=== PATIENT | male | born 1950 | race Caucasian/White ===

== ENCOUNTER → 2019-04-26 | Outpatient (CLI) | payer MEDICARE, OTHER ==
[~2019-04-26] MED LIST: ASPIR 8181 MG; BENICAR PO
--- NOTE | 2019-04-26 16:08 | Diagnostic Imaging Report ---
EXAM: Focused Soft Tissue Ultrasound Evaluation of left lower extremity INDICATION: Left lower extremity palpable subcutaneous nodule COMPARISON: None TECHNIQUE: Cornejo scale, color Doppler images of the area of clinical interest in the left lower extremity were obtained. FINDINGS: Sonographic evaluation of the area of clinical interest in the left lower lateral leg demonstrates a heterogeneous subcutaneous lesion measuring 3.9 x 2.0 x 3.3 cm without associated internal vascularity. IMPRESSION: Nonvascular subcutaneous lesion measuring 3.9 x 2.0 x 3.3 cm. Differential considerations include sequela of prior trauma or less likely atypical appearance of a lipoma. Signed by: Nazario Carr MD on 04/26/2019 4:05 PM
== END ==
LOC: US 14:28
PROVIDERS: ATTEND Family Medicine
DX: L98.9 Disorder of the skin and subcutaneous tissue, unspecified (principal); R22.42 Localized swelling, mass and lump, left lower limb
CPT/HCPCS: 76882

== ENCOUNTER → 2019-11-17 | Outpatient (CLI) | payer MEDICARE, OTHER ==
--- NOTE | 2019-11-17 14:49 | Diagnostic Imaging Report ---
EXAM: Renal Ultrasound INDICATION: ^ABNORMAL KIDNEY FUNCTION STUDY COMPARISON: None TECHNIQUE: Transverse and longitudinal images of the kidneys and bladder were obtained. FINDINGS: Right Kidney: Length: 12.5 cm Appearance: Normal echogenicity. Collecting system: No hydronephrosis Stones: None Cyst/Mass: None Left Kidney: Length: 12.1 cm Appearance: Normal echogenicity. Collecting system: No hydronephrosis Stones: None Cyst/Mass: None Bladder: No mass or calculi. Bilateral ureteral jets visualized. Prevoid volume estimate of 217 cc. IMPRESSION: No hydronephrosis or renal calculi. Signed by: Nazario Carr MD on 11/17/2019 2:46 PM
== END ==
LOC: US 13:52
PROVIDERS: ATTEND Family Medicine
DX: R94.4 Abnormal results of kidney function studies (principal)
CPT/HCPCS: 76770

== ENCOUNTER → 2020-04-19 | Day surgery (SDC) | payer MEDICARE, OTHER ==
[2020-04-13 15:28] LABS: BASOPHILS % 0.4 % (0.0-1.0); EOSINOPHILS # (AUTO) 0.1 (0.0-0.4); EOSINOPHILS % 1.5 % (0.0-6.0); HEMATOCRIT 46.7 % (38.2-49.6); HEMOGLOBIN 14.4 g/dL (14.0-18.0); LYMPHOCYTES # (AUTO) 1.5 (1.0-3.2); LYMPHOCYTES % 22.3 % (18.0-39.1); MEAN CORPUSCULAR HEMOGLOBIN 29.8 pg (28-32); MEAN CORPUSCULAR HGB CONC 30.8 g/dL (31-35); MEAN CORPUSCULAR VOLUME 96.7 fL (81-99); MONOCYTES # (AUTO) 0.7 (0.2-0.8); MONOCYTES % 10.1 % (4.4-11.3); NEUTROPHILS # (AUTO) 4.5 (2.1-6.9); NEUTROPHILS % 65.4 % (38.7-80.0); PLATELET COUNT 200 x10e3/uL (140-360); RED BLOOD COUNT 4.83 x10e6/uL (4.3-5.7); RED CELL DISTRIBUTION WIDTH 14.4 % (11.7-14.4)
[~2020-04-19] MED LIST changes: +CALCIUM CARBON500 MG PO; +EPHEDRINE SULFATE INJ 50 MG/ML VIAL ONE; +FISH OIL 1,0001 EAC2 PO; +HYOSCYAMINE 0.125 MG TAB ONE; +LIDOCAINE HCL 2% LOCAL INJ 5 ML SDV VIAL INJ ONE; +PROPOFOL IV EMULSION 10 MG/ML 20 ML VIAL ONE; +VITAMIN E400 UNIT PO; +ZINC SULFATE220 M1 PO
[2020-04-19 14:45] VITALS: BP 110/69
--- NOTE | 2020-04-19 15:41 | Operative Report ---
DATE OF PROCEDURE: 04/19/2020 SURGEON: Margarito Ortiz MD PROCEDURES: EGD with biopsies and colonoscopy with polypectomy note. INDICATIONS FOR EGD: Heartburn, nausea, bloating. INDICATIONS FOR COLONOSCOPY: Surveillance colonoscopy, personal history of colon polyps. MEDICATIONS: The patient was done under MAC, please see anesthesiologist's note. PROCEDURE IN DETAIL: With the patient in left lateral decubitus position, a flexible fiberoptic Olympus gastroscope was introduced into the esophagus under direct visualization without any difficulty. There was some patchy erythema noted in the distal esophagus. The scope was then advanced with ease into the stomach. Mucosa overlying the antrum and the body revealed some patchy erythema and [id number] edema, and biopsies were obtained, sent to stain for H. pylori. Two minute submucosal nodules in the antrum were biopsied. The pylorus was of normal contour and shape, it was intubated with ease and the scope was advanced all the way to the second portion of the duodenum. The scope was then withdrawn slowly, mucosa overlying the proximal second portion and duodenal bulb appeared to be within normal limits. The scope was then withdrawn back into the stomach and retroflexed, mucosa overlying the fundus and the cardia appeared to be within normal limits. The scope was then straightened out, it was subsequently withdrawn. The patient tolerated the procedure well. IMPRESSION: 1. Distal esophagitis, mild. 2. Gastritis, biopsied, biopsies sent to stain for H. pylori. 3. Gastric antrum, minute submucosal nodules, biopsied. PLAN: 1. Follow up histology. 2. Initiate Protonix 40 mg one p.o. q.a.m. a.c. DESCRIPTION OF PROCEDURE: The patient was then turned around after adequate lubrication of the anal canal, a flexible fiberoptic Olympus colonoscope was inserted into the rectum with ease and advanced all the way to the cecum. It was then withdrawn slowly. Mucosa overlying the cecum appeared to be within normal limits. One polyp was removed per the cold biopsy forceps from the ascending colon and additional polyp was removed also per the cold biopsy forceps on the transverse colon. Diverticular disease was noted in the distal descending and the sigmoid colon. The rectum appeared to be within normal limits. The scope was then retroflexed into the distal rectum and small internal hemorrhoids were noted, none of which was actively bleeding. The scope was then straightened out, it was subsequently withdrawn. The patient tolerated procedure well. IMPRESSION: 1. Ascending colon polyp removed per the cold biopsy forceps. 2. Transverse colon polyp removed per the cold biopsy forceps. 3. Diverticulosis. 4. Internal hemorrhoids, none actively bleeding. PLAN: 1. Follow up histology. 2. Initiate high-fiber, low-fat diet. 3. Initiate high-fiber supplement. Margarito Ortiz MD [facility] [place]/MODL /[id number] cc: Willem Flowers DO
== END | disposition home or self-care (01) ==
LOC: OR 10:52
PROVIDERS: ATTEND Internal Medicine Gastroenterology
DX: K29.50 Unspecified chronic gastritis without bleeding (principal); D12.2 Benign neoplasm of ascending colon; D12.3 Benign neoplasm of transverse colon; K31.89 Other diseases of stomach and duodenum; K57.30 Diverticulosis of large intestine without perforation or abscess without bleeding; K20.9 Esophagitis, unspecified; K64.8 Other hemorrhoids; R19.7 Diarrhea, unspecified; I10 Essential (primary) hypertension; I44.0 Atrioventricular block, first degree; Z01.810 Encounter for preprocedural cardiovascular examination; Z01.812 Encounter for preprocedural laboratory examination; Z11.59 Encounter for screening for other viral diseases; Z79.82 Long term (current) use of aspirin; Z68.36 Body mass index [BMI] 36.0-36.9, adult
CPT/HCPCS: 36415; 43239; 45378; 85025; 88305; 88312; 93005; J2001; U0002

== ENCOUNTER → 2025-01-30 | Outpatient (REF) | payer MEDICARE, OTHER ==
[~2025-01-30] MED LIST changes: +ATORVASTATIN CA20 MG PO; +D3 PLUS K2 DOT1 EACH PO; +ELIQUIS5 MG PO; -EPHEDRINE SULFATE INJ 50 MG/ML VIAL ONE; -HYOSCYAMINE 0.125 MG TAB ONE; -LIDOCAINE HCL 2% LOCAL INJ 5 ML SDV VIAL INJ ONE; +LISINOPRIL10 MG PO; -PROPOFOL IV EMULSION 10 MG/ML 20 ML VIAL ONE
== END ==
LOC: US 13:54
PROVIDERS: ATTEND Family Medicine
DX: M25.531 Pain in right wrist (principal)
CPT/HCPCS: 76882

== ENCOUNTER → 2025-02-13 | Outpatient (REF) | payer MEDICARE, OTHER | LOC: MRI 09:05 | PROVIDERS: ATTEND Family Medicine | DX: M25.531 Pain in right wrist (principal) ==